=== PATIENT | male | born 1995 | race Caucasian/White ===

== ENCOUNTER 2019-09-07 18:05 | Emergency (ER) | payer MEDICAID ==
[~2019-09-07] VITALS: Ht 188 cm; Wt 90.7 kg
--- NOTE | 2019-09-07 18:06 | NUR ---
PT BIBA BLS TO ER BED 05. RN AND PHYSICIAN EVALUATING AT BEDSIDE.
[2019-09-07 18:10] VITALS: BP 143/100
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
--- NOTE | 2019-09-07 19:06 | NUR ---
REPORT RECEIVED FROM JUSTIN STORNG FOR CONTINUATION OF CARE.
[2019-09-07 19:36] VITALS: BP 143/100
--- NOTE | 2019-09-07 19:37 | NUR ---
PATIENT BIB [employer] [place] [employer]. PATIENT EXAMINED BY DR. PERKINS. PATIENT MEDICALLY CLEARED AND RELEASED IN CUSTODY IN STABLE CONDITION. ORIGINAL PRE-BOOK FORM GIVEN TO OFFICER FLORESITA VILA # [id number].
== END 2019-09-07 19:37 | disposition home or self-care (01) ==
LOC: MED 18:05
DX: S09.90XA Unspecified injury of head, initial encounter (principal); S00.511A Abrasion of lip, initial encounter; R41.3 Other amnesia; W19.XXXA Unspecified fall, initial encounter; Y93.89 Activity, other specified; Y92.89 Other specified places as the place of occurrence of the external cause; Y99.8 Other external cause status
CPT/HCPCS: 70450; 90471; 90715; 99284